=== PATIENT | female | born 1990 | race Caucasian/White ===

== ENCOUNTER 2019-06-15 18:54 | Emergency (ER) | payer OTHER ==
[~2019-06-15] VITALS: Ht 157.5 cm; Wt 53.2 kg
--- NOTE | 2019-06-15 19:19 | NUR ---
C/O NAUSEA X3 DAYS AND VOMITING FOR 24 HOURS UNABLE TO KEEP ANYTHING DOWN. PLACED VITALS SIGNS MONITORS ON. ERP AT BEDSIDE FOR EVAL.
[2019-06-15] MEDS ORDERED: SODIUM CHLORIDE FLUSH 10ML SYR IVF ONE (19:30)
[2019-06-15] MEDS ORDERED: ONDANSETRON 2MG/ML, 2ML IVPush ONE ×2 (19:30→21:00)
[2019-06-15] MEDS ORDERED: SODIUM CHLORIDE 0.9% 1,000ML IVBOLUS ONE (19:30)
[2019-06-15] MEDS ORDERED: LORazepam 2 MG/ML, 1ML IV ONE (19:30)
[2019-06-15] MEDS ORDERED: LORazepam 2 MG/ML, 1ML ONE (19:32)
[2019-06-15] MEDS ORDERED: ONDANSETRON 2MG/ML, 2ML ONE ×2 (19:32→20:20)
--- NOTE | 2019-06-15 19:37 | NUR ---
MEDICATED PER MAR, VSS. SAFETY PRECAUTIONS IN PLACE.
[2019-06-15 21:15] VITALS: BP 115/79
--- NOTE | 2019-06-15 21:27 | NUR ---
IV DC'D WITH TIP INTACT.
== END 2019-06-15 21:34 | disposition home or self-care (01) ==
LOC: ED 19:49
DX: R11.2 Nausea with vomiting, unspecified (principal); F41.1 Generalized anxiety disorder; R53.1 Weakness; R63.0 Anorexia
CPT/HCPCS: 96361; 96374; 96375; 96376; 99284; J2060; J2405; J7030